=== PATIENT | female | born 1955 | race African-American/Black ===

== ENCOUNTER → 2016-09-01 | Outpatient (CLI) | payer OTHER ==
[~2016-09-01] VITALS: Ht 160 cm; Wt 72.1 kg
[~2016-09-01] MED LIST: ADULT LOW DOSE81 MG PO; AMITIZA 24 MCG24 MC1 PO; ATROVENT HFA14 GM INH; AVAPRO 150 MG150 M1 PO; BACLOFEN 10MG T10 M1 PO; BENZONATATE200 MG PO; CARAFATE 1 GM TA1 G1 PO; CIPRO500 MG PO; CLONAZEPAM 1 MG1 M1 PO; CLONAZEPAM PO; COLACE100 MG PO; COMPOUND CREAM; CYMBALTA30 MG PO; CYMBALTA60 MG PO; DIOVAN320 MG PO; ENDOCET 5-3251 EACH PO; FISH OIL 1,001000 MG PO; FLAXSEED OIL1000 MG PO; FLONASE 0.05%50 MCG NASAL; GAVISCON TABLE1 EACH PO; GLYCOLAX POWDER17 GM PO; HYCET 7.5 MG-3473 ML PO; HYDROCHLOROTHIA25 M2 PO; HYDROCODON-ACE1 EAC5 PO; HYDROCODONE-HOMA5 ML PO; IBUPROFEN 800800 M1 PO; IRBESARTAN300 MG PO; LINZESS290 MCG PO; LIPITOR80 MG PO; LOSARTAN POTASS50 MG PO; MEDROLDOSEPACK PO; MOBIC7.5 MG PO; NEURONTIN 300300 M1 PO; NEXIUM 40 MG CA40 M1 PO; NEXIUM PO; NEXIUM20 M1 PO; PERCOCET 5-3251 EACH PO; PERCOCET PO; PROAIR HFA8.5 GM IH; PROAIR HFA8.5 GM NASAL; PROBIOTIC1 EAC1 PO; PROMETHAZINE/C118 ML PO; PROTONIX40 M1 PO; REGLAN 10 MG TA10 MG PO; ROBAXIN 750 MG750 M1 PO; ROBITUSSIN100 MG/53 PO; SAVELLA50 MG PO; SINGULAIR 10 MG10 M1 PO; TESSALON PERLE100 MG PO; TOPROL XL25 MG PO; UNICOMPLEX M TA1 TA1 PO; XIFAXAN550 M1 PO; ZOFRAN ODT4 MG DISSOLVE; [UNRECOGNIZED DRUG - OTHER]; [UNRECOGNIZED DRUG - OTHER]; [UNRECOGNIZED DRUG - OTHER] PO
--- NOTE | ~2016-09-01 | HPC ---
[address] [address] PAIN MANAGEMENT CONSULTATION Name: PERLA GARDNER [facility] Room #: REG NETOColeman Schaeffer#: [id number] Admission: 09/01/16 Attend Phys: Anthony Garcia DO Discharge: Date of : 55 Report #: [id number] THIS REPORT FOR: //name// CC: Dr. Hermann Medel DATE OF SERVICE: 09/01/2016 CHIEF COMPLAINT: Low back pain, left lower extremity pain and paresthesias. HISTORY OF PRESENT ILLNESS: As you know, the patient is a 61-year-old female who returns today in followup visit reporting pain score 7/10. She has been referred back to our clinic for lumbar radiculopathy. She has been followed by an orthopedic spine surgeon who has requested that we provide epidural injection under fluoroscopic guidance. The patient's distribution is in the posterior portion of the leg radiating to the foot in a low distribution. She was referred specifically to trial epidural injections with concerns of L3-L4 radiculopathy, though her distribution of symptoms do not correlate to that request. Her symptoms radiate on the L5-S1 dermatomal distribution with complete numbness and tingling in the foot. She has returned requesting an epidural injection to address ongoing pain issues. She does not have plans for surgery at this time and is hopeful to avoid surgery if at all possible. ALLERGIES: AMOXICILLIN, POTASSIUM, AUGMENTIN. CURRENT MEDICATIONS: Multivitamin 1 tab per day, Xifaxan 550 mg twice a day, hydrochlorothiazide 25 mg once a day, domperidone 10 mg twice a day, sucralfate 1 gram per day, metoprolol 25 mg twice a day, valsartan 320 mg once a day, ipratropium bromide 4 times a day, fluticasone 1 spray each nostril per day, albuterol 1 puff q.4 hours p.r.n., pantoprazole 40 mg per day, atorvastatin 80 mg per day, aspirin 81 mg per day. SOCIAL HISTORY: The patient denies tobacco, alcohol or illicit drug use. She is on disability, has been so for years. She is unaccompanied today. PHYSICAL EXAMINATION: VITAL SIGNS: Blood pressure 128/65, pulse 60, respiratory rate 16 and unlabored. The patient is 100% on room air. Height 5 feet 3 inches tall, weight 159 pounds, BMI calculated 28.2. GENERAL: Well developed, well nourished, well hydrated 61-year-old female appearing her stated age. She is placing current pain score 7/10. HEENT: Normocephalic, atraumatic. Pupils equal, round, reactive to light. Extraocular muscles are intact. Sclerae nonicteric without injection. NEUROLOGIC: Cranial nerves 2-12 grossly intact. Speech fluent. LUNGS: Clear. No wheezing, rhonchi or rales. [address] [address] PAIN MANAGEMENT CONSULTATION Name: PERLA GARDNER [facility] Room #: ARNAV Schaeffer#: [id number] Admission: 09/01/16 Attend Phys: Anthony Garcia DO Discharge: Date of : 55 Report #: [id number] CARDIOVASCULAR: Regular. No appreciable gallop or rub. ABDOMEN: Soft, mildly obese, normoactive bowel sounds. EXTREMITIES: Show no clubbing, no cyanosis, no edema. MUSCULOSKELETAL: Seated straight leg raising negative. Supine straight leg raising negative. Elvira test is negative. Modified Gaenslen's is positive for axial low back pain, no radiation. Well healed surgical scars over the lower lumbar spine. Muscle bulk and tone equal and symmetrical in lower extremities. Intact to light touch from L1 through S2 dermatomes. Deep tendon reflexes at patella and Achilles are symmetrical, but diminished bilaterally. ASSESSMENT: 1. Lumbar radiculopathy. 2. Displacement of lumbar intervertebral disk with radiculopathy. 3. Lumbosacral spondylosis with radiculopathy. 4. Chronic intractable pain. PLAN: 1. The patient has been referred back to our clinic by her orthopedic spine surgeon for evaluation for suspected lumbar radiculopathy. The patient indicates that there is concern that changes at the L3-L4 level may be correlating the patient's symptoms. I am unable to correlate this request to current distribution of pain. Distribution of pain in this patient currently is posterolateral thigh radiating into the foot, which would correlate more to the L5-S1 dermatomal distribution. L3-L4, as you are aware would be affecting the anterior thigh and medial portion of the knee. The patient and I did discuss the requested epidural injection. We would be more than willing to provide this injection with the caveat that the distribution of pain currently is in the lower area. We would recommend initially addressing her numbness and tingling involving the posterolateral thigh and foot before moving to address the L3-L4 level which at this point is providing no paresthesias. The patient is agreeable with addressing the pain generator at this time and then adjusting treatment to a higher level as necessary. 2. The patient was advised risks and benefits of a lumbar epidural injection. These risks include but are not necessarily limited to bleeding, bruising, infection, worsening pain, no relief of pain and also risk of temporary or permanent muscle weakness, temporary or permanent nerve damage, possible paralysis and . The patient states she understood and wished to proceed. 3. No medication changes were made at today's visit. The patient to continue current medical therapy as previously prescribed. 4. The patient to return to our clinic on an as needed basis for possible repeat epidural injection. 5. I wished to thank the referring physician, Dr. Mccrary for the opportunity to see the patient in reconsultation. Again, we wish to thank Dr. Mccrary for this re-referral. PROCEDURE NOTE [facility] [address] [place] [address] PAIN MANAGEMENT CONSULTATION Name: PERLA GARDNER [facility] Room #: REG [facility].#: [id number] Admission: 09/01/16 Attend Phys: Anthony Garcia DO Discharge: Date of : 55 Report #: [id number] DESCRIPTION OF PROCEDURE: L5-S1 paramedian epidural steroid injection under fluoroscopic guidance. After obtaining written consent, the patient was taken back to fluoroscopy suite, placed in prone position with pillow under abdomen to decrease lumbar lordosis. Skin overlying the lumbosacral area was prepped and draped in aseptic fashion. The L5-S1 vertebral interspace was identified by AP fluoroscopy. Skin and subcutaneous tissue overlying the target site of injection was anesthetized with 3 mL of 1% lidocaine. A 20-gauge 3-1/2 inch Tuohy needle was advanced under fluoroscopic guidance towards the epidural space using a paramedian approach. Epidural space was identified using loss of resistance to air technique. After negative aspiration for heme or cerebrospinal fluid, 1 mL of Omnipaque was injected. Lumbar epidurogram was confirmed using both AP and lateral fluoroscopy. After negative aspiration for heme or cerebrospinal fluid, 5 mL of a solution containing 2 mL 40 mg per mL, 80 mg total triamcinolone, 3 mL lidocaine 1% was injected slowly. Needle retracted approximately care home, needle tract flushed 3 mL 1% lidocaine. Needle then removed. Sterile bandage placed over injection site. No new motor deficits present in lower extremity following procedure. The patient tolerated procedure well, carefully escorted to the recovery in stable condition. No apparent complication. After meeting discharge criteria, the patient discharged home. <ELECTRONICALLY SIGNED> By: Anthony Garcia DO 09/07/16 1243 [id number] 1002 Anthony Garcia DO /nt
[2016-09-01 09:41] VITALS: BP 128/65
== END | disposition home or self-care (01) ==
LOC: PAIN 07:06
DX: M51.16 Intervertebral disc disorders with radiculopathy, lumbar region (principal); M47.27 Other spondylosis with radiculopathy, lumbosacral region; G89.29 Other chronic pain

== ENCOUNTER → 2017-03-08 | Outpatient (CLI) | payer OTHER ==
[~2017-03-08] VITALS: Ht 160 cm; Wt 59.9 kg
[~2017-03-08] MED LIST changes: +BACTRIM DS TAB1 EACH PO; +CALCIUM 500 +1 EAC5 PO; +KEFLEX500 M1 PO; +METFORMIN HCL500 MG PO; +NITROGLYCERIN0.4 MG SUBLING; +NORTRIPTYLINE H10 M1 PO; +PROAIR HFA8.5 GM INH; -PROAIR HFA8.5 GM NASAL; +VITAMIN D2000 UNIT PO; +ZOFRAN ODT4 MG PO; +ZOFRAN ODT4 MG SUBLING
--- NOTE | ~2017-03-08 | P ---
[facility] [place] [address] [place] [address] PROCEDURE REPORT Name: PERLA GARDNER Room #: REG [facility] Laury#: [id number] Admission: 03/08/17 Attend Phys: Anthony Garcia DO Discharge: Date of : 55 Report #: [id number] THIS REPORT FOR: //name// CC: Anthony Medel DATE OF SERVICE: 03/08/2017 DESCRIPTION OF PROCEDURE: Trigger point injections on the anterior chest wall. After obtaining written consent, the patient was placed in a supine position. By using a single finger, 2 trigger points were identified that caused typical pain distribution on the anterior chest. These areas were marked with sterile marker. The area was then cleansed with chlorhexidine. A 25-gauge 2-inch needle was then advanced towards each of the trigger points until the patient's typical radiating pain pattern was reproduced. At this point, 5 mL of a solution containing 1 mL 40 mg/mL and 9 mL of bupivacaine 0.5% was injected on the right side in a field distribution. The needle was then removed and second injection was placed on the left side, 5 mL of the remaining solution in a field block distribution. Needle was retracted without complication and flushed with 1 mL of 1% lidocaine. Sterile bandages were placed over each of these injection sites. The patient tolerated the procedure well. After meeting our discharge criteria, she went home. <ELECTRONICALLY SIGNED> By: Anthony Garcia DO 03/18/17 0705 1319 1406 Anthony Garcia DO /vicente
--- NOTE | ~2017-03-08 | HPC ---
[facility] [place] [address] PAIN MANAGEMENT CONSULTATION Name: PERLA GARDNER Room #: REG [place] Cl.#: [id number] Admission: 03/08/17 Attend Phys: Anthony Garcia DO Discharge: Date of : 55 Report #: [id number] THIS REPORT FOR: //name// CC: Anthony Medel DATE OF SERVICE: 03/08/2017 CHIEF COMPLAINT: Anterior chest wall pain. HISTORY OF PRESENT ILLNESS: As you know, the patient is a 61-year-old female who has been referred back to our service to trial injections around the sternal incision and scar tissue overlying the anterior chest from her coronary artery bypass grafting. It is believed that part of the patient's upper abdominal symptoms are related to this scar tissue. They have requested that we trial trigger point injections in the area in hopes of improving pain. The patient indicates pain level of 5/10 today, states her pain is constant, burning, stabbing, radiating, numbness and tingling; exacerbated with nothing; improves with nothing. She has returned per the request of her doctor to undergo this injection treatment. ALLERGIES: AMOXICILLIN, POTASSIUM, AUGMENTIN. CURRENT MEDICATIONS: See extensive list in chart. SOCIAL HISTORY: The patient denies tobacco, alcohol, IV or illicit drug use. She is on disability, has been so for years. She is unaccompanied today. IMAGING: No new imaging available. PHYSICAL EXAMINATION: VITAL SIGNS: Blood pressure 150/85, pulse 75, respiratory rate 16, unlabored. The patient is 100% on room air, height 5 feet 3 inches tall, weight 132 pounds, BMI calculated 23.4. GENERAL: Well developed, well nourished, well hydrated 61-year-old female appearing stated age. Pain is rated around 5/10. HEENT: Normocephalic, atraumatic. Pupils equal, round, reactive to light. Extraocular muscles are intact. Sclerae nonicteric without injection. NEUROLOGIC: Cranial nerves 2-12 grossly intact. Speech fluent. The patient deemed a good historian. LUNGS: Clear, no wheeze, rhonchi or rales. CARDIOVASCULAR: Regular. No appreciable gallop or rub. ABDOMEN: Soft, nontender, nondistended. EXTREMITIES: Show no clubbing, no cyanosis, no edema. MUSCULOSKELETAL: The patient does have some palpatory tenderness over the anterior chest. This tends to surround the patient's midline scar from her [address] [address] PAIN MANAGEMENT CONSULTATION Name: PERLA GARDNER Room #: REG APOLONIA Laury#: [id number] Admission: 03/08/17 Attend Phys: Anthony Garcia DO Discharge: Date of : 55 Report #: [id number] coronary artery bypass grafting. Deep palpation area causes intensification of pain. ASSESSMENT: 1. Scar pain. 2. Myofascial pain. 3. Chronic intractable pain. PLAN: 1. The patient has been referred back to our service by her family assistant to trial injections in and around her midline scar from her coronary artery bypass grafting surgery. The patient does have palpatory tenderness over the area. Deep palpation in the area does cause intensification of pain that is similar to the patient's reports of symptoms. We have consented the patient to undergo the trigger point injections in the area. We have advised the patient of the risks and benefits. These risks include but are not necessarily limited to bleeding, bruising, infection, worsening pain, no relief of pain, also risk of temporary or permanent muscle weakness, temporary or permanent nerve damage, pneumothorax, and . The patient states he understood and wished to proceed. 2. No medication changes were made at today's visit, the patient to continue current medical therapy as previously prescribed. 3. The patient to return to our clinic on an as needed basis. She will report to her family assistant the efficacy of today's procedure, so they may determine future course of treatment. <ELECTRONICALLY SIGNED> By: Anthony Garcia DO 03/18/17 0705 1319 1404 Anthony Garcia DO /nt
[2017-03-08 13:02] VITALS: BP 150/85
== END | disposition home or self-care (01) ==
LOC: PAIN 07:07
DX: M79.1 Myalgia (principal); G89.29 Other chronic pain; Z95.1 Presence of aortocoronary bypass graft; Z88.0 Allergy status to penicillin; Z88.8 Allergy status to other drugs, medicaments and biological substances

== ENCOUNTER → 2017-04-05 | Outpatient (CLI) | payer OTHER ==
[~2017-04-05] VITALS: Ht 160 cm; Wt 58.4 kg
--- NOTE | ~2017-04-05 | HPC ---
[facility] [place] [place] [address] PAIN MANAGEMENT CONSULTATION Name: PERLA GARDNER Room #: REG APOLONIA Schaeffer#: [id number] Admission: 04/05/17 Attend Phys: Anthony Garcia DO Discharge: Date of : 55 Report #: [id number] THIS REPORT FOR: //name// CC: Anthony Medel DATE OF SERVICE: 04/05/2017 REFERRING PHYSICIAN: Husam Medel M.D. CHIEF COMPLAINT: Anterior chest wall pain, generalized body pain. HISTORY OF PRESENT ILLNESS: As you know, the patient is a 61-year-old female who returns today in followup visit to discuss the efficacy of the requested scar injection. Unfortunately, the patient reports that no improvement in symptoms. Her pain now has changed from the scar region to the upper epigastric area, is related to GI issues. She received no benefit with the requested trigger point injection. She is yet to return to see the physician who referred the patient to our clinic for this anterior chest wall injection to advise of the lack of efficacy. She does return today indicating that her primary care physician recently sent her to see rheumatology. She now carries the diagnosis of fibromyalgia, which we had noted was the source of her generalized pain in previous evaluations as far back as 2013. We have been treating the patient with Savella for her fibro symptomology and was doing well, but she could not afford her medications. She returns today in followup visit to discuss further her ongoing pain issues and lack of efficacy from the injection that she was referred to our clinic by her surgeon. ALLERGIES: AMOXICILLIN, POTASSIUM, AZITHROMYCIN, METOCLOPRAMIDE and LEVOTHYROXINE. CURRENT MEDICATIONS: Nortriptyline, nitroglycerin, sucralfate, valsartan, calcium carbonate, cholecalciferol, metformin, multivitamin, metoprolol, fluticasone, pantoprazole, atorvastatin and aspirin. SOCIAL HISTORY: The patient denies tobacco, alcohol or IV or illicit drug use. She is on disability, has been so for years. She is unaccompanied today. IMAGING DATA: No new imaging available. PHYSICAL EXAMINATION: VITAL SIGNS: Blood pressure 115/74, pulse 73 and respiratory rate 16 and unlabored. The patient is 100% on room air. Height 5 feet 3 inches tall, weight 128.8 pounds and BMI calculated 22.28. GENERAL: Well developed, well nourished, well hydrated 61-year-old female appearing her stated age. She is placing pain score today at 5/10. [place] [address] PAIN MANAGEMENT CONSULTATION Name: PERLA GARDNER Room #: REG [facility]#: [id number] Admission: 04/05/17 Attend Phys: Anthony Garcia DO Discharge: Date of : 55 Report #: [id number] HEENT: Normocephalic and atraumatic. Pupils equal, round and reactive to light. EXTREMITIES: Show no clubbing, no cyanosis and no edema. MUSCULOSKELETAL: Seated straight leg raising negative. Supine straight leg raising negative. Ethel's test negative. Modified Gaenslen's positive for some axial low back pain. Well-healed surgical scar over the lumbar region and also well-healed scar over the anterior chest wall. There is some palpatory tenderness over the mid epigastric region. No tenderness around the surgical site on the anterior chest wall. She has of 18 of 18 tender points indicative of myofascial pain. ASSESSMENT: 1. Myofascial pain in the form of fibromyalgia. 2. Lumbosacral spondylosis without radiculopathy. 3. Displacement of lumbar intervertebral disk without radiculopathy. 4. Anterior chest wall pain. 5. Chronic intractable pain. PLAN: 1. The patient has returned today in followup visit where we have discussed the lack of efficacy with the injection requested by her surgeon around the surgery site and the anterior chest wall. We performed a deep trigger points in the area and this provided no improvement in symptoms. The patient's symptoms are centered in the mid epigastric and upper epigastric area and appear to be related more to the deeper structures and not the incision itself. The patient has yet to return to see her surgeon to advise of the lack of efficacy with the requested injection. Pain that the patient is experiencing appears to be epigastric in its position and unrelated to her incision. She is to follow up with her surgeon for further evaluation from a standpoint of internal organs underlying the pain area. 2. The patient has been recently sent for rheumatology evaluation. Rheumatology has provided the patient with a diagnosis of fibromyalgia. We have been treating the patient for myofascial symptoms secondary to fibromyalgia-like pain generation since 2013. We had the patient on Savella but due to the cost of medication, she could not continue the therapy. She did notice analgesic benefit with its use. We had the patient on all other recommended pain medications per the CDC guidelines for treatment of fibromyalgia including duloxetine, gabapentin, Lyrica, nortriptyline, amitriptyline and all either led to side effects she could not tolerate or incomplete pain relief. She did very well on the Savella 50 mg twice a day dose. I have advised the patient at this time and we will reattempt to start this medication. If coverage is not available, she could talk to her PCP and her accounting clerks supervisor to assist in obtaining this medication. 3. The patient was provided a prescription of Savella 50 mg dose 1 tab p.o. b.i.d., given #60 tablets with 2 refills, 3 months' worth of medication. 4. The patient will return to our clinic on an as needed basis. I believe that [facility] [place] [address] PAIN MANAGEMENT CONSULTATION Name: PERLA GARDNER Room #: REG APOLONIA Schaeffer#: [id number] Admission: 04/05/17 Attend Phys: Anthony Garcia DO Discharge: Date of : 55 Report #: [id number] the majority of her symptoms are related to fibromyalgia. She was given information today from the CDC guidelines for treatment for fibromyalgia. I did walk through this with her today, so she has full understanding of the variable treatment options, but I did discuss the fact that a complete resolution of her symptoms would not be possible. I believe she has a better understanding of the fibromyalgia condition. She has a diagnosis of fibromyalgia at this point, though we have been treating her since 2013 for similar issues. By: [phone] Anthony Garcia DO /nt
[2017-04-05 13:11] VITALS: BP 115/74
== END | disposition home or self-care (01) ==
LOC: PAIN 07:23
DX: M79.1 Myalgia (principal); M79.7 Fibromyalgia; M47.817 Spondylosis without myelopathy or radiculopathy, lumbosacral region; M51.16 Intervertebral disc disorders with radiculopathy, lumbar region; G89.29 Other chronic pain; Z88.1 Allergy status to other antibiotic agents; Z88.8 Allergy status to other drugs, medicaments and biological substances